=== PATIENT | female | born 1965 | race Caucasian/White ===

== ENCOUNTER → 2017-09-07 | Outpatient (CLI) | payer BC ==
--- NOTE | 2017-09-08 10:45 | NM ---
EXAMINATION TYPE: NM thyroid image w uptake DATE OF EXAM: 09/08/2017 COMPARISON: NONE HISTORY: He had tolerated cold intolerance tremors irritability insomnia TECHNIQUE: Thyroid iodine uptake is calculated and images performed after the oral administration of 338 uCi 1-123 Capsule. FINDINGS: There is normal distribution of activity throughout the gland. The 4 hour iodine uptake is calculated at 7.8% (normal range 8-14%). The 24-hour iodine uptake is calculated at 23.4% (normal ra nge 15-35%). No photopenic defects or focal hot nodules are evident. IMPRESSION: Normal thyroid scan and uptake.
== END | disposition home or self-care (01) ==
LOC: RADNMMAIN 08:22
PROVIDERS: ATTEND Internal Medicine Endocrinology, Diabetes & Metabolism
DX: E05.90 Thyrotoxicosis, unspecified without thyrotoxic crisis or storm (principal)
CPT/HCPCS: 78014; A9516

== ENCOUNTER → 2019-07-17 | Outpatient (CLI) | payer OTHER ==
[2019-07-17 23:56] LABS: T4, Free (Free Thyroxine) 1.1 ng/dL (0.80-1.80)
== END | disposition home or self-care (01) ==
LOC: LABWHC1 16:12
PROVIDERS: ATTEND Internal Medicine Endocrinology, Diabetes & Metabolism
DX: E05.90 Thyrotoxicosis, unspecified without thyrotoxic crisis or storm (principal)
CPT/HCPCS: 36415; 84439; 84443; 84480

== ENCOUNTER → 2021-01-19 | Outpatient (CLI) | payer OTHER ==
[2021-01-19 15:42] VITALS: BP 108/69; PULSE 72; TEMP 98.5; BMI 33.3
--- NOTE | 2021-01-19 15:45 | P.HPBAR ---
Bariatric H&P - History & Physicial H&P Date: 01/19/21 History & Physicial: Visit/CC: sleeve folow up Patient initial contact: Initial weight: Initial weight in pounds: Height: 5 ft 5 in Initial BMI: Last weight: Current weight: 90.718 kg Current weight in pounds: 200.00 Current BMI: 33.3 Ignacio body weight (based on NIH guidelines): 56.699 kg Excess body weight loss: The patient is a 55 year-old F who presents for Bariatric Assessment. Patient presents today due to GERD symptoms. She has not been seen several years. She has had weight gain. She states that she has some intermittent vomiting. Past Medical History Smoking Status: Never smoker Surgical - Exam Vital Signs Temp Pulse BP 98.5 F 72 108/69 01/19/21 15:36 01/19/21 15:36 01/19/21 15:36 - General well developed, well nourished, no distress - Eyes PERRL - ENT normal pinna - Neck no masses - Respiratory normal expansion - Cardiovascular Rhythm: regular - Abdomen Abdomen: soft, non tender Bariatric Assessment & Plan Plan: GERD. Patient is scheduled for EGD and esophagram. Bariatric Checklist Checklist: Plan: Checklist: EGD: 1. Hiatal hernia: 2. H. Pylori: HgbA1c: Vitamin D: Smoking: Primary care physician referral: Psychiatry clearance: Cardiology clearance: Sleep study: Diet journal: VTE risk score: VTE risk level: Rehab needs at discharge:
--- NOTE | 2021-01-20 07:58 | FL ---
EXAMINATION TYPE: FL barium swallow DATE OF EXAM: 01/19/2021 COMPARISON: NONE HISTORY: Dysphasia difficulty with breathing and vomiting with movements TECHNIQUE: Fluoroscopy. FINDINGS: Fluoroscopy time 1 minute 45 seconds Number of images: 19 Thin contrast barium was utilized to evaluate the esophagus. There is marked hesitancy of contrast pa ssing through the gastric sleeve. There appears to be a hiatal hernia present. Irregularity at the ga stroesophageal junction entering the stomach appears to be present. Only mild dominant of the distal esophagus is evident. Consider developing Barretts esophagitis. There is some irregularity of the gas tric sleeve. Gastritis may be present. Overhead radiographs were obtained. There is some prominence o f duodenal folds as well as prominence of the gastric folds. IMPRESSION: 1. Gastritis and duodenitis. 2. Distal esophageal spasm with hesitancy passing into the gastric sleeve. Consider developing Judd ts esophagitis. Patient may warrant direct visualization
== END ==
LOC: BARWHC3 14:41
PROVIDERS: ATTEND Surgery
DX: K21.9 Gastro-esophageal reflux disease without esophagitis (principal)
CPT/HCPCS: 74220; 99203

== ENCOUNTER 2021-03-26 09:43 | Day surgery (SDC) | payer OTHER ==
[2021-03-24 10:24] VITALS: BMI 32.4
[~2021-03-26 09:43] MED LIST: LACTATED RINGERS 1,000 ML IV SCH
[2021-03-26 10:53] VITALS: TEMP 97.8
[2021-03-26] MEDS ORDERED: LIDOCAINE 1% INJ 10MG/ML (20 ML MDV) ONE (11:16)
[2021-03-26] MEDS ORDERED: PROPOFOL 10 MG/ML 20 ML VIAL IV ONE (11:16)
--- NOTE | 2021-03-26 11:19 | P.GSHP ---
History of Present Illness H&P Date: 03/26/21 Chief Complaint: GERD, morbid obesity Is a 55-year-old female undergoing workup her GERD. She has a history of sleeve gastrectomy. Past Medical History Past Medical History: GERD/Reflux, Hearing Disorder / Deafness, Hyperlipidemia, Hypertension, Osteoarthritis (OA), Sleep Apnea/CPAP/BIPAP Additional Past Medical History / Comment(s): Uses CPAP, Hyperthyroid, bilateral hearing aid use. History of Any Multi-Drug Resistant Organisms: None Reported Past Surgical History: Bariatric Surgery, Section, Cholecystectomy, Hernia Repair, Hysterectomy, Orthopedic Surgery, Tonsillectomy Additional Past Surgical History / Comment(s): Sleeve gastrectomy 2013, section X3, left knee surgery, umbilical hernia repair X2. Past Anesthesia/Blood Transfusion Reactions: No Reported Reaction Past Psychological History: Depression Smoking Status: Former smoker Past Alcohol Use History: Rare Additional Past Alcohol Use History / Comment(s): Quit smoking in 2017. Past Drug Use History: None Reported - Past Family History Father Family Medical History: Cancer Additional Family Medical History / Comment(s): Skin cancer. Medications and Allergies Home Medications Medication Instructions Recorded Confirmed Type Atorvastatin [Lipitor] 20 mg PO DAILY 01/20/21 03/26/21 History Biotin [Biotin Disolve] 5,000 mcg PO DAILY 01/20/21 03/26/21 History Cetirizine HCl [Zyrtec] 10 mg PO DAILY 01/20/21 03/26/21 History Cholecalciferol (Vitamin D3) 1,000 unit PO DAILY 01/20/21 03/26/21 History [Vitamin D3 (3000 Iu)] Citalopram Hydrobromide [CeleXA] 20 mg PO DAILY 01/20/21 03/26/21 History Melatonin 10 mg PO HS 01/20/21 03/26/21 History Methimazole [Tapazole] 5 mg PO DAILY 01/20/21 03/26/21 History Metoprolol Tartrate [Lopressor] 50 mg PO BID 01/20/21 03/26/21 History Multivit with Calcium,Iron,Min 1 tab PO DAILY 01/20/21 03/26/21 History [Women's Multivitamin] Naproxen 500 mg PO DAILY 01/20/21 03/26/21 History Omeprazole 20 mg PO BID 01/20/21 03/26/21 History Fiber Tablet 1 tab PO DAILY PRN 03/24/21 03/26/21 History Allergies Allergy/AdvReac Type Severity Reaction Status Date / Time No Known Allergies Allergy Verified 03/26/21 10:35 Surgical - Exam Vital Signs Temp Pulse Resp BP Pulse Ox 97.8 F 64 18 124/59 98 03/26/21 10:46 03/26/21 10:46 03/26/21 10:46 03/26/21 10:46 03/26/21 10:46 - General well developed, well nourished, no distress - Eyes PERRL - ENT normal pinna - Neck no masses - Respiratory normal expansion - Abdomen Abdomen: soft, non tender Assessment and Plan Assessment: GERD. Patient will undergo EGD with possible balloon dilatation of sleeve gastrectomy.
--- NOTE | 2021-03-26 11:30 | P.OP ---
Date of Procedure: 03/26/21 Preoperative Diagnosis: GERD Postoperative Diagnosis: GERD Procedure(s) Performed: EGD with balloon dilatation Anesthesia: MAC Surgeon: Obi Terry Pathology: none sent Condition: stable Disposition: PACU Description of Procedure: The patient's placed on the endoscopy table in the lateral position. She received IV sedation. The gastroscope placed oropharynx passed in the esophagus into the stomach. Scope was then placed through the pylorus. The first and second portion of the duodenum appeared normal. Scope brought back and stomach. Patient appears gastric sleeve. There was a questionable change in the angularity the sleeve the midportion stomach. The 20 mm balloon was placed across this area. There did not did not appear to be a definite stricture. Balloon was withdrawn. The remainder some appeared normal. There was no significant esophagitis. The GE junction was at 40 cm.. Scope was withdrawn for patient.
[2021-03-26 11:45] VITALS: RESP 16
[2021-03-26 12:02] VITALS: BP 94/53; PULSE 62
== END 2021-03-26 12:23 | disposition home or self-care (01) ==
LOC: ORWHC2ENDO 09:43
PROVIDERS: ATTEND Surgery
DX: K21.9 Gastro-esophageal reflux disease without esophagitis (principal); E05.90 Thyrotoxicosis, unspecified without thyrotoxic crisis or storm; E66.01 Morbid (severe) obesity due to excess calories; E78.5 Hyperlipidemia, unspecified; G47.33 Obstructive sleep apnea (adult) (pediatric); I10 Essential (primary) hypertension; M19.90 Unspecified osteoarthritis, unspecified site; H91.90 Unspecified hearing loss, unspecified ear; Z79.1 Long term (current) use of non-steroidal anti-inflammatories (NSAID); Z87.891 Personal history of nicotine dependence; Z90.49 Acquired absence of other specified parts of digestive tract; Z98.84 Bariatric surgery status; Z79.899 Other long term (current) drug therapy; Z97.4 Presence of external hearing-aid; Z98.890 Other specified postprocedural states; Z90.710 Acquired absence of both cervix and uterus
CPT/HCPCS: 43245; J2001; J2704; C1726